=== PATIENT | female | born 1990 | race Caucasian/White ===

== ENCOUNTER 2019-03-14 10:42 | Emergency (ER) | payer OTHER ==
[~2019-03-14] VITALS: Ht 167.6 cm; Wt 99.8 kg
[2019-03-14 10:49] VITALS: BP 159/84
== END 2019-03-14 12:56 | disposition home or self-care (01) ==
LOC: ER 10:45
DX: S80.821A Blister (nonthermal), right lower leg, initial encounter (principal); X58.XXXA Exposure to other specified factors, initial encounter; Y93.89 Activity, other specified; Y99.8 Other external cause status; Y92.89 Other specified places as the place of occurrence of the external cause